=== PATIENT | male | born 1980 | race Caucasian/White ===

== ENCOUNTER 2017-04-01 13:24 | Emergency (ER) | payer OTHER ==
[~2017-04-01] VITALS: Ht 175.3 cm; Wt 103.6 kg
[~2017-04-01 13:24] MED LIST: ADDERALL XR 1515 MG PO; ADDERALL10 MG PO; AMLODIPINE BESY10 MG PO; ASPIR-LOW81 MG PO; BUTALB-APAP-CA1 EACH PO; COLACE100 MG PO; DISKETS40 MG PO; DOCUSATE SODIU100 MG PO; DOLOPHINE HCL10 MG PO; DOXYCYCLINE HY100 M3 PO; FIORICET 50-301 EACH PO; FIORICET,ESG1 TABLET PO; FLOVENT DISKUS1 DIS1 IH; HYDROXYZINE PAM25 MG PO; IMITREX50 MG PO; KEPPRA1000 MG PO; LEVETIRACETAM500 MG PO; LEVOTHYROXINE75 MCG PO; METHADONE H5 MG/5 ML PO; METHADONE10 MG PO; METOPROLOL TART25 MG PO; MILK OF MAGN PO; NAPROSYN500 MG PO; NAPROXEN500 MG PO; NICOTINE PATCH1 EAC2 TD; NICOTINE PATCH1 EACH TD; PERCOCET 5/31 TABLET PO; PRAVASTATIN SOD80 MG PO; PROAIR HFA8.5 GM IH; PROCTOFOAM-HC10 GM PR; QUETIAPINE FUM100 MG PO; RISPERDAL2 MG PO; RISPERIDONE2 MG PO; SEROQUEL100 MG PO; SEROQUEL200 MG PO; SEROQUEL300 MG PO; SERTRALINE HCL100 MG PO; SODIUM BICARBO325 MG PO; SYNTHROID75 MCG PO; TOPAMAX50 MG PO; VALIUM5 MG PO; ZONISAMIDE100 MG PO
[2017-04-01 14:39] LABS: BASOPHIL (%) 0.2 % (0-1); EOSINOPHIL (%) 0.9 % (0-5); EOSINOPHIL COUNT 0.1 K/uL (0-0.3); HEMATOCRIT 42.9 % (38.0-50.0); HEMOGLOBIN 14.8 G/DL (12.5-16.6); IMMATURE GRANULOCYTE (%) 0.3 % (0.0-0.7); LYMPHOCYTE (%) 12.4 % (15-42); LYMPHOCYTE COUNT 1.4 K/uL (1.0-2.8); MCH 29.1 PG (29.0-34.0); MCHC 34.5 G/DL (30.0-36.0); MCV 84.4 FL (86-99); MONOCYTE (%) 5.7 % (3-12); MONOCYTE COUNT 0.6 K/uL (0-0.8); NEUTROPHIL (%) 80.5 % (45-76); NEUTROPHIL COUNT 8.9 K/uL (1.8-6.4); PLATELET COUNT 213 K/uL (156-360); RBC DIS.WIDTH-SD 39.8 % (39-53); RED BLOOD COUNT 5.08 M/uL (4.00-5.50); WHITE BLOOD COUNT 11.1 K/uL (4.1-10.2)
[2017-04-01 15:05] LABS: ALBUMIN 4.3 G/DL (3.2-4.8); CHLORIDE 107 MEQ/L (99-109); SODIUM 139 MEQ/L (136-147); TOTAL BILIRUBIN 0.3 MG/DL (0.0-1.0)
[2017-04-01 15:15] LABS: CK-MB 1.3 ng/mL (0.0-4.9)
[2017-04-01 17:16] LABS: CREATINE KINASE 206 IU/L (1-294); SERUM ETHYL ALCOHOL < 10 mg/dL
[2017-04-01 17:23] LABS: ALKALINE PHOSPHATASE 64 IU/L (3-129); ALT (GPT) 17 IU/L (3-49); AST (GOT) 18 IU/L (2-34); CKMB RELATIVE INDEX 0.6 (0.0-3.9); CREATININE 0.8 MG/DL (0.6-1.3); GFR ESTIMATE (CALCULATED) > 59 mL/min/ (58.99-99999); GLUCOSE 126 mg/dL (70-99); TOTAL CK 206 IU/L (1-294); TOTAL PROTEIN 7.4 G/DL (6.4-8.3); UREA NITROGEN (BUN) 7 mg/dL (9-23)
[2017-04-01] MEDS ORDERED: TRILEPTAL150 MG PO (17:28)
[2017-04-01 18:05] VITALS: BP 94/55
== END 2017-04-01 18:23 | disposition home or self-care (01) ==
LOC: EME 13:24
PROVIDERS: Emergency Medicine
DX: R56.9 Unspecified convulsions (principal); S00.81XA Abrasion of other part of head, initial encounter; Y93.K1 Activity, walking an animal; Z86.73 Personal history of transient ischemic attack (TIA), and cerebral infarction without residual deficits; K21.9 Gastro-esophageal reflux disease without esophagitis; J45.909 Unspecified asthma, uncomplicated; I10 Essential (primary) hypertension; Z88.5 Allergy status to narcotic agent; Z88.0 Allergy status to penicillin; F17.200 Nicotine dependence, unspecified, uncomplicated; W18.30XA Fall on same level, unspecified, initial encounter
CPT/HCPCS: 70450; 71046; 71275; 80053; 82550; 82553; 85025; 85379; 93005; 99281; 99285; G0480; J7040